=== PATIENT | female | born 1990 | race Caucasian/White ===

== ENCOUNTER 2018-07-08 00:56 | Emergency (ER) | payer OTHER ==
[~2018-07-08] VITALS: Ht 175.2 cm; Wt 95.3 kg
[~2018-07-08 00:56] MED LIST: AMITRIPTYLINE75 MG PO; ANAPROX DS550 MG PO; BACTRIM DS 8001 TA1 PO; BIRTH CONTROL1 EACH; CARAFATE1 G1 PO; CIPROFLOXACIN500 MG PO; CLEOCIN150 MG PO; DEXALONE30 MG; FLAGYL500 MG PO; LEXAPRO10 MG; MEDROL DOSEPAK4 MG PO; NORTRIPTYLINE50 MG; PEPTO-BISMOL262 M1 PO; REGLAN10 MG PO; TYLENOL W/CODEI1 TA2 PO; VIBRA-TAB100 MG PO; VICODIN 5/500 505 MG PO; ZOFRAN4 MG PO; ZOVIRAX800 MG PO; Zofran4 MG PO
[2018-07-08 01:01] VITALS: BP 135/70
[2018-07-08 01:33] LABS: BASO % 0.5 % (0.0-1.0); EOS # 0.1 10*3/uL (0.0-0.4); HEMATOCRIT 36.7 % (37.0-47.0); HEMOGLOBIN 12.9 g/dl (12.0-16.0); LYMPH % 22.2 % (27.0-41.0); MEAN CELL VOLUME 89.7 fl (81.0-99.0); MEAN CORPUSCULAR HGB 31.5 pg (27.0-31.0); MEAN CORPUSCULAR HGB CONC 35.1 g/dl (33.0-37.0); MEAN PLATELET VOLUME 9.7 fl (9.6-12.3); MONO # 0.7 10*3/uL (0.1-1.0); MONO % 7.7 % (3.0-9.0); NEUT % 68.4 % (47.0-73.0); PLATELET COUNT AUTOMATED 235 10*3/uL (130-400); RED BLOOD COUNT 4.09 10*6/uL (4.10-5.10); WHITE BLOOD COUNT 8.8 10*3/uL (4.8-10.8)
[2018-07-08 01:48] LABS: ALBUMIN 3.5 gm/dl (3.1-4.5); ALKALINE PHOSPHATASE 50 U/L (45-117); BUN 9 mg/dl (7-24); CHLORIDE 106 mmol/L (98-107); CREATININE 0.87 mg/dL (0.55-1.02); LIPASE 130 U/L (73-393); POTASSIUM 3.9 mmol/L (3.5-5.1); SGOT/AST 14 IU/L (3-35); SGPT/ALT 20 U/L (12-78); SODIUM 144 mmol/L (136-145); TOTAL PROTEIN 7.4 gm/dL (6.4-8.2)
[2018-07-08 02:07] LABS: BILIRUBIN NEGATIVE (NEGATIVE); BLOOD 3+ (NEGATIVE); CLARITY SL CLOUDY (CLEAR); COLOR YELLOW (YELLOW); GLUCOSE NEGATIVE (NEGATIVE); KETONE TRACE (NEGATIVE); LEUKO ESTERASE NEGATIVE (NEGATIVE); NITRITE NEGATIVE (NEGATIVE); UROBILINOGEN 0.2 E.U./dl (0.2-1.0)
[2018-07-08 02:14] LABS: RBC 21-30 rbc/hpf (0-2)
[2018-07-08 02:15] LABS: BACTERIA TRACE; WBC 0-2 wbc/hpf (0-5)
[2018-07-08] MEDS ORDERED: VICODIN 5-3001 EACH PO (03:27)
== END 2018-07-08 04:34 | disposition home or self-care (01) ==
LOC: ED 00:56
PROVIDERS: Physician Assistant
DX: N20.0 Calculus of kidney (principal); Z91.040 Latex allergy status; Z88.0 Allergy status to penicillin; Z79.899 Other long term (current) drug therapy

== ENCOUNTER 2019-09-07 08:24 | Emergency (ER) | payer OTHER ==
[~2019-09-07] VITALS: Ht 175.2 cm; Wt 97.5 kg
[~2019-09-07 08:24] MED LIST changes: +VICODIN 5-3001 EACH PO
[2019-09-07 10:53] VITALS: BP 120/68
== END 2019-09-07 11:18 | disposition home or self-care (01) ==
LOC: ED 08:24
DX: S53.125A Posterior dislocation of left ulnohumeral joint, initial encounter (principal); Z88.0 Allergy status to penicillin; Z91.040 Latex allergy status; Z79.899 Other long term (current) drug therapy; W01.0XXA Fall on same level from slipping, tripping and stumbling without subsequent striking against object, initial encounter; Y93.89 Activity, other specified; Y92.89 Other specified places as the place of occurrence of the external cause; Y99.8 Other external cause status